=== PATIENT | male | born 1935 | race Caucasian/White ===

== ENCOUNTER → 2017-11-09 | Outpatient (CLI) | payer MEDICARE ==
[~2017-11-09] MED LIST: ALLOPURINOL100 MG PO; ASPIRIN81 M1 PO; DIOVAN160 MG PO; FORTAMET1000 M1 PO; LIPITOR20 MG PO; NIACIN500 M1 PO; PROTONIX40 MG PO; VERAPAMIL HCL40 MG PO; VITAMIN D-32000 UNIT PO
== END | disposition home or self-care (01) ==
LOC: CDC 14:51
DX: Z01.810 Encounter for preprocedural cardiovascular examination (principal); R94.31 Abnormal electrocardiogram [ECG] [EKG]
CPT/HCPCS: 93000